=== PATIENT | female | born 1980 | race Caucasian/White ===

== ENCOUNTER 2017-05-09 11:03 | Emergency (ER) | payer OTHER ==
[2017-05-09] MEDS ORDERED: Sodium Chloride 0.9% 1,000 ML IV ONE ×2 (11:07→11:38)
[2017-05-09] MEDS ORDERED: Famotidine 20 MG Tab PO ONE (11:07)
[2017-05-09] MEDS ORDERED: methylPREDNISolone Sodium Succinate 125 MG/2 ML SDV IVPUSH ONE (11:07)
[2017-05-09] MEDS ORDERED: diphenhydrAMINE 50 MG/ML SDV IVPUSH ONE (11:07)
--- NOTE | 2017-05-09 11:08 | EDM.PDOC ---
ED HPI GENERAL MEDICAL PROBLEM - General Chief Complaint: General Stated Complaint: REACTION TO UNKNOWN Time Seen by Provider: 05/09/17 11:07 Source of Information: Reports: Patient - History of Present Illness INITIAL COMMENTS - FREE TEXT/NARRATIVE: HISTORY AND PHYSICAL: History of present illness: Allergic reaction after eating a peanut butter bar, patient states she has been tongue swelling sensation over that do not appear significantly swollen no stridor No fever nausea vomiting chills sweats Review of systems: As per history of present illness and below otherwise all systems reviewed and negative. Past medical history: As per history of present illness and as reviewed below otherwise noncontributory. Surgical history: As per history of present illness and as reviewed below otherwise noncontributory. Social history: No reported history of drug or alcohol abuse. Family history: As per history of present illness and as reviewed below otherwise noncontributory. Physical exam: HEENT: Atraumatic, normocephalic, pupils reactive, negative for conjunctival pallor or scleral icterus, mucous membranes moist, throat clear, neck supple, nontender, trachea midline. No visible lip swelling tongue swelling or oral pharyngeal edema no stridor Lungs: Clear to auscultation, breath sounds equal bilaterally, chest nontender. Heart: S1S2, regular, negative for clicks, rubs, or JVD. Abdomen: Soft, nondistended, nontender. Negative for masses or hepatosplenomegaly. Negative for costovertebral tenderness. Pelvis: Stable nontender. Genitourinary: Deferred. Rectal: Deferred. Extremities: Atraumatic, negative for cords or calf pain. Neurovascular unremarkable. Neuro: Awake, alert, oriented. Cranial nerves II through XII unremarkable. Cerebellum unremarkable. Motor and sensory unremarkable throughout. Exam nonfocal. Diagnostics: [] Therapeutics: []Liter normal saline bolus Solu-Medrol 125 mg IV Benadryl 50 mg IV Famotidine 20 mg by mouth Medrol Dosepak Benadryl Zantac Impression: []Allergic reaction improved/resolved Definitive disposition and diagnosis as appropriate pending reevaluation and review of above. - Related Data Allergies Allergy/AdvReac Type Severity Reaction Status Date / Time Penicillins Allergy Hives Verified 05/09/17 11:11 Home Meds: Home Meds Levonorgestrel-Ethin Estradiol [[id number] Tablet] 1 tab PO DAILY 05/09/17 [ History] ED ROS GENERAL - Review of Systems Review Of Systems: ROS reveals no pertinent complaints other than HPI. ED EXAM, GENERAL - Physical Exam Exam: See Below Course - Vital Signs Last Recorded V/S: Last Vital Signs Temp 36.4 C 05/09/17 11:08 Pulse 100 05/09/17 11:48 Resp 16 05/09/17 11:48 BP 120/85 05/09/17 11:48 Pulse Ox 98 05/09/17 11:48 - Orders/Labs/Meds Orders: Active Orders 24 hr Category Date Time Status Sodium Chloride 0.9% [Normal Saline] 1,000 ml Med 05/09/17 11:07 Active IV STAT Medication Orders Sodium Chloride (Normal Saline) 1,000 mls @ 999 mls/hr IV STAT ONE Stop: 05/09/17 12:07 Last Admin: 05/09/17 11:17 Dose: 999 mls/hr Meds: Medications Generic Name Dose Route Start Last Admin Trade Name Freq PRN Reason Stop Dose Admin Sodium Chloride 1,000 mls @ 999 mls/hr 05/09/17 11:07 05/09/17 11:17 Normal Saline IV 05/09/17 12:07 999 mls/hr STAT ONE Administration Discontinued Medications Generic Name Dose Route Start Last Admin Trade Name Freq PRN Reason Stop Dose Admin Diphenhydramine HCl 50 mg 05/09/17 11:07 05/09/17 11:15 Benadryl IVPUSH 05/09/17 11:08 50 mg ONETIME ONE Administration Famotidine 20 mg 05/09/17 11:07 05/09/17 11:15 Pepcid PO 05/09/17 11:08 20 mg ONETIME ONE Administration Sodium Chloride 1,000 mls @ 999 mls/hr 05/09/17 11:38 05/09/17 11:47 Normal Saline IV 05/09/17 12:38 Not Given STAT ONE Methylprednisolone Sodium Succinate 125 mg 05/09/17 11:07 05/09/17 11:15 Solu-Medrol IVPUSH 05/09/17 11:08 125 mg ONETIME ONE Administration Departure - Departure Time of Disposition: 11:56 Disposition: Home, Self-Care 01 Condition: Good Clinical Impression: Allergic reaction - Discharge Information Referrals: PCP,None [Primary Care Provider] - Forms: ED Department Discharge Additional Instructions: No further eating the peanut bars Medication as prescribed A new EpiPen has been provided for your via prescription Benadryl 50 mg every 46 hours as needed Zantac 150 mg by mouth twice a day may benefit as well Consider allergy testing with your primary care provider Follow-up with primary care within 2 weeks Return to emergency room if symptoms persist or worsen despite treatment The following information is given to patients seen in the emergency department who are being discharged to home. This information is to outline your options for follow-up care. We provide all patients seen in our emergency department with a follow-up referral. The need for follow-up, as well as the timing and circumstances, are variable depending upon the specifics of your emergency department visit. If you don't have a primary care physician on staff, we will provide you with a referral. We always advise you to contact your personal physician following an emergency department visit to inform them of the circumstance of the visit and for follow-up with them and/or the need for any referrals to a consulting specialist. The emergency department will also refer you to a specialist when appropriate. This referral assures that you have the opportunity for follow-up care with a specialist. All of these measure are taken in an effort to provide you with optimal care, which includes your follow-up. Under all circumstances we always encourage you to contact your private physician who remains a resource for coordinating your care. When calling for follow-up care, please make the office aware that this follow-up is from your recent emergency room visit. If for any reason you are refused follow-up, please contact the [facility] emergency department at and asked to speak to the emergency department charge nurse. - My Orders Last 24 Hours: My Active Orders 05/09/17 11:07 Sodium Chloride 0.9% [Normal Saline] 1,000 ml IV STAT - Assessment/Plan Last 24 Hours: My Active Orders 05/09/17 11:07 Sodium Chloride 0.9% [Normal Saline] 1,000 ml IV STAT
[2017-05-09 12:17] VITALS: BP 130/83
== END 2017-05-09 12:21 | disposition home or self-care (01) ==
LOC: MW.ED 11:03
DX: T78.1XXA Other adverse food reactions, not elsewhere classified, initial encounter (principal); Z88.0 Allergy status to penicillin
CPT/HCPCS: 96361; 96374; 96375; 99284; A9270; J1200; J2930; J7040; 99282

== ENCOUNTER 2024-10-17 13:44 | Emergency (ER) | payer BC, OTHER ==
[2024-10-17] MEDS: methylPREDNISolone Sodium Succinate 125 MG/2 ML SDV IVPUSH STA (15:12)
[2024-10-17] MEDS: Sodium Chloride 0.9% 1,000 ML IV STA (15:12)
[2024-10-17] MEDS: Famotidine 20 MG/2 ML SDV IVPUSH STA (15:12)
[2024-10-17] MEDS: diphenhydrAMINE 50 MG/ML SDV IVPUSH STA (15:12)
[2024-10-17 15:22] LABS: BASOPHILS ABSOLUTE AUTO 0.02 K/uL (0.00-0.20); BASOPHILS PERCENT AUTO 0.3 % (0.0-1.0); EOSINOPHILS ABSOLUTE AUTO 0.13 K/uL (0.00-0.45); EOSINOPHILS PERCENT AUTO 1.9 % (0.0-6.0); HEMATOCRIT 39.2 % (37.0-47.0); HEMOGLOBIN 13.4 g/dL (12.0-16.0); IMMATURE GRAN ABSOLUTE AUTO 0.01 K/uL (0.00-0.05); IMMATURE GRAN PERCENT AUTO 0.1 % (0.0-0.4); LYMPHOCYTES ABSOLUTE AUTO 2.46 K/uL (1.00-4.80); LYMPHOCYTES PERCENT AUTO 35.8 % (24.0-44.0); MEAN CORPUSCULAR HEMOGLOBIN 30.1 pg (28.0-32.0); MEAN CORPUSCULAR HGB CONC 34.2 g/dL (32.0-36.0); MEAN CORPUSCULAR VOLUME 88.1 fL (83.0-99.0); MONOCYTES ABSOLUTE AUTO 0.39 K/uL (0.00-0.80); MONOCYTES PERCENT AUTO 5.7 % (0.0-8.0); NEUTROPHILS ABSOLUTE AUTO 3.87 K/uL (1.80-7.70); NEUTROPHILS PERCENT AUTO 56.2 % (41.0-71.0); PLATELET COUNT,PLT 218 K/uL (150-400); RED BLOOD CELL COUNT 4.45 M/uL (4.10-5.30); WHITE BLOOD CELL COUNT,WBC 6.88 K/uL (3.9-11.3)
[2024-10-17 15:47] LABS: A/G RATIO 1.2 (0.9-1.6); ALBUMIN 4.1 g/dL (3.4-5.0); BILIRUBIN TOTAL 0.3 mg/dL (0.2-1.0); CALCIUM 9.2 mg/dL (8.5-10.1); CARBON DIOXIDE,CO2 27.6 mmol/L (21.0-32.0); CREATININE 0.8 mg/dL (0.6-1.0); EST CRCL DRUG DOSING (CG) 79.07 mL/min; POTASSIUM,K 3.8 mmol/L (3.5-5.1); PROTEIN TOTAL,TP 7.6 g/dL (6.4-8.2)
[2024-10-17] MEDS: Iopamidol 755 MG/ML 500 ML Multipack Bottle IVPUSH STA (18:33)
[2024-10-17 20:14] VITALS: BP 147/94; PULSE 98
== END 2024-10-17 20:10 | disposition home or self-care (01) ==
LOC: MW.ED 13:44
DX: T78.49XA Other allergy, initial encounter (principal); R79.1 Abnormal coagulation profile; Z79.899 Other long term (current) drug therapy; Z91.048 Other nonmedicinal substance allergy status; Z88.0 Allergy status to penicillin
CPT/HCPCS: 36415; 71046; 71275; 80053; 83690; 83735; 84484; 84703; 85025; 85379; 87428; 93005; 96361; 96374; 96375; 99285; J1200; J2919; J3490; J7030; Q9967; 93010